=== PATIENT | female | born 1980 | race Caucasian/White ===

== ENCOUNTER 2017-08-18 14:25 | Outpatient (CLI) | payer BC ==
[~2017-08-18 14:25] MED LIST: Gadobenate Dimeglumine 529 MG/1 ML (20ML VIAL) ONE
--- NOTE | 2017-08-18 16:50 | MRI ---
HISTORY: Hypesthesia of skin. MRI BRAIN WITH AND WITHOUT CONTRAST 08/18/17 Multiplanar and multisequence pre and postcontrast enhanced MRI images of the brain is obtained. The patient received 18 mL of Multihance given IV. Pre and postcontrast enhanced MRI images of the brain demonstrate the brain to be unremarkable. No ev idence of intracranial masses, hemorrhages, strokes, or contusions seen. The ventricles are of normal size. No evidence of areas of diffusion restriction seen. IMPRESSION: Unremarkable pre and postcontrast enhanced MRI images of the brain. POS: [facility]
== END 2017-08-18 14:26 | disposition home or self-care (01) ==
LOC: SCSMRI 14:25
PROVIDERS: ATTEND Psychiatry & Neurology Neurology
DX: R20.1 Hypoesthesia of skin (principal)
CPT/HCPCS: 70553; A9579

== ENCOUNTER 2022-02-12 12:12 | Outpatient (CLI) | payer BC | END 2022-02-12 12:13 | disposition home or self-care (01) | LOC: BICMAMMO 12:12 | PROVIDERS: ATTEND Family Medicine | DX: Z12.31 Encounter for screening mammogram for malignant neoplasm of breast (principal) | CPT/HCPCS: 77063; 77067 ==

== ENCOUNTER 2022-08-04 07:35 | Outpatient (CLI) | payer BC | END 2022-08-04 07:36 | disposition home or self-care (01) | LOC: NM 07:35 | PROVIDERS: ATTEND Family Medicine | DX: R10.11 Right upper quadrant pain (principal) | CPT/HCPCS: 78227; A9537 ==